=== PATIENT | female | born 1995 | race African-American/Black ===

== ENCOUNTER 2018-01-02 10:56 | Emergency (ER) | payer OTHER ==
[~2018-01-02] VITALS: Ht 157.5 cm; Wt 67.1 kg
[~2018-01-02 10:56] MED LIST: BACTRIM DS TAB1 EACH PO; IBUPROFEN 600600 M1 PO; MACROBID 100 M100 M2 PO; ONDANSETRON HCL4 M2 PO; PYRIDIUM200 MG PO
[2018-01-02 11:31] LABS: URINE BILIRUBIN NEGATIVE (Negative); URINE BLOOD TRACE (Negative); URINE CLARITY SL CLOUDY; URINE COLOR YELLOW; URINE GLUCOSE-RANDOM* NEGATIVE (Negative); URINE KETONES NEGATIVE (Negative); URINE NITRITE-REFLEX NEGATIVE (Negative); URINE PROTEIN (DIPSTICK) 1+ (Negative); URINE UROBILINOGEN 0.2 E.U./dl (0.2-1.0)
[2018-01-02 11:32] LABS: URINE LEUKOCYTES-REFLEX 3+ (Negative)
[2018-01-02 11:41] LABS: BACTERIA-REFLEX >30 Many /HPF (None Seen); CASTS None Seen /LPF (None Seen); CRYSTALS None Seen /LPF (None Seen); SQUAMOUS 4-10 Moderate /LPF (0-3); URINE WBC-REFLEX >25 Many /HPF (0-5)
[2018-01-02 11:42] LABS: URINE RBC 0-2 Rare /HPF (0-2)
[2018-01-02] MEDS ORDERED: VALACYCLOVIR500 MG PO (11:55)
[2018-01-02] MEDS ORDERED: NORCO 5-325 TA1 EACH PO (11:55)
[2018-01-02] MEDS ORDERED: KEFLEX500 M1 PO (11:55)
[2018-01-02] MEDS ORDERED: FLAGYL500 MG PO (12:00)
[2018-01-02 12:11] VITALS: BP 118/72
[2018-01-04 15:07] LABS: NEISSERIA GONORRHEA-PCR Negative (Negative)
== END 2018-01-02 12:12 | disposition home or self-care (01) ==
LOC: ER 10:56
PROVIDERS: Physician Assistant
DX: B00.1 Herpesviral vesicular dermatitis (principal); N39.0 Urinary tract infection, site not specified; N76.0 Acute vaginitis

== ENCOUNTER 2018-09-09 08:26 | Emergency (ER) | payer OTHER ==
[~2018-09-09] VITALS: Ht 157.5 cm; Wt 68.0 kg
[~2018-09-09 08:26] MED LIST changes: +FLAGYL500 MG PO; +KEFLEX500 M1 PO; +NORCO 5-325 TA1 EACH PO; +VALACYCLOVIR500 MG PO
[2018-09-09 10:33] LABS: URINE BILIRUBIN NEGATIVE (Negative); URINE BLOOD 2+ (Negative); URINE COLOR YELLOW; URINE GLUCOSE-RANDOM* NEGATIVE (Negative); URINE KETONES 2+ (Negative); URINE PROTEIN (DIPSTICK) 1+ (Negative); URINE UROBILINOGEN 0.2 E.U./dl (0.2-1.0)
[2018-09-09 10:34] LABS: URINE CLARITY CLOUDY; URINE LEUKOCYTES-REFLEX 1+ (Negative); URINE NITRITE-REFLEX POSITIVE (Negative)
[2018-09-09 10:38] LABS: HEMATOCRIT 37.3 % (37.0-47.0); HEMOGLOBIN 12.2 gm/dL (12.0-15.0); MCH 25.2 pg (26.0-34.0); MCHC 32.6 g/dL (28.0-37.0); MCV 77.3 fL (80.0-100.0); PLATELET COUNT 191 thou/uL (150-400); RBC 4.83 mil/uL (4.20-5.00); RDW 15.5 % (10.5-14.5); WBC 11.4 thou/uL (4.0-11.0)
[2018-09-09 10:52] LABS: CASTS None Seen /LPF (None Seen); CRYSTALS None Seen /LPF (None Seen); SQUAMOUS >10 Many /LPF (0-3)
[2018-09-09 10:53] LABS: BACTERIA-REFLEX >30 Many /HPF (None Seen); URINE RBC 3-10 Few /HPF (0-2)
[2018-09-09 10:53] LABS: CALCIUM 9.7 mg/dL (8.5-10.1); POTASSIUM 3.6 mmol/L (3.5-5.1)
[2018-09-09 12:03] LABS: ABSOLUTE NEUTROPHILS 8.9 thou/uL (1.4-8.2); ANISOCYTOSIS 1+
[2018-09-09] MEDS ORDERED: BACTRIM DS TAB1 EACH PO (13:10)
[2018-09-09 13:30] VITALS: BP 118/74
== END 2018-09-09 13:30 | disposition home or self-care (01) ==
LOC: ER 08:26
PROVIDERS: Student in an Organized Health Care Education/Training Program
DX: N12 Tubulo-interstitial nephritis, not specified as acute or chronic (principal)